=== PATIENT | male | born 1995 | race Caucasian/White ===

== ENCOUNTER 2020-07-20 17:42 | Emergency (ER) | payer OTHER ==
[~2020-07-20] VITALS: Ht 182.9 cm; Wt 115.7 kg
[2020-07-20] MEDS ORDERED: NEURONTIN 300M300 M2 PO (18:12)
[2020-07-20 19:10] VITALS: BP 170/98
== END 2020-07-20 19:10 | disposition home or self-care (01) ==
LOC: M.ERS 17:42
DX: J98.8 Other specified respiratory disorders (principal); Z20.828 Contact with and (suspected) exposure to other viral communicable diseases; B34.9 Viral infection, unspecified

== ENCOUNTER 2021-07-21 22:20 | Emergency (ER) | payer OTHER ==
[~2021-07-21] VITALS: Ht 182.9 cm; Wt 104.3 kg
[~2021-07-21 22:20] MED LIST: NEURONTIN 300M300 M2 PO
[2021-07-21] MEDS ORDERED: HYDROXYZINE HCL50 MG PO (22:43)
[2021-07-21] MEDS ORDERED: ZOLOFT25 MG PO (22:43)
[2021-07-21] MEDS ORDERED: TRAZODONE HCL50 MG PO (22:43)
[2021-07-21 23:01] LABS: INFLUENZA A ANTIGEN Negative (Negative); INFLUENZA B ANTIGEN Negative (Negative)
[2021-07-21 23:46] VITALS: BP 123/67
== END 2021-07-21 23:46 | disposition home or self-care (01) ==
LOC: M.ERS 22:20
PROVIDERS: Nurse Practitioner Psychiatric/Mental Health
DX: J06.9 Acute upper respiratory infection, unspecified (principal); Z20.822 Contact with and (suspected) exposure to COVID-19; Z79.899 Other long term (current) drug therapy